=== PATIENT | female | born 1950 | race Caucasian/White ===

== ENCOUNTER 2020-05-23 23:54 | Emergency (ER) | payer MEDICARE, BC ==
[~2020-05-23] VITALS: Ht 167.6 cm; Wt 77.1 kg
[2020-05-24] MEDS ORDERED: DEXTROSE 50% SYRINGE 50 ML IV PRN (00:15)
[2020-05-24] MEDS ORDERED: ACETAMINOPHEN 325 MG TAB ONE (00:45)
[2020-05-24 00:52] LABS: ALBUMIN 3.7 g/dL (3.5-5.0); ALBUMIN/GLOBULIN RATIO 0.9 (0.8-2.0); ANION GAP 19.1 mmol/L (8-16); CALCIUM 8.1 mg/dL (8.4-10.2); CREATININE, SERUM 1.91 mg/dL (0.57-1.11); POTASSIUM 3.1 mmol/L (3.5-5.1)
[2020-05-24] MEDS ORDERED: ONDANSETRON HCL INJ 2MG/ML 2ML 2 MG/ML VIAL ONE (00:56)
[2020-05-24 01:09] LABS: CLARITY,URINE CLOUDY (CLEAR); COLOR,URINE YELLOW (YELLOW); KETONES,URINE NEGATIVE (NEGATIVE); LEUKOCYTE ESTERASE ,URINE NEGATIVE (NEGATIVE); NITRITE,URINE NEGATIVE (NEGATIVE); PROTEIN,URINE DIPSTICK >=300 (NEGATIVE); URINE UROBILINOGEN 0.2 mg/dL (0.2 - 1)
[2020-05-24 01:42] LABS: BACTERIA,URINE MANY /HPF; EPITHELIAL CELLS,URINE FEW /LPF; RBC,URINE >50 /HPF (0-5); WBC,URINE (MAN) 21-50 /HPF (0-5)
[2020-05-24] MEDS ORDERED: CEFTRIAXONE SOD 1 GM/50 ML BAG IV ONE (01:45)
[2020-05-24 01:47] LABS: BASOPHILS % 0.2 % (0.0-1.0); EOSINOPHILS % 0.2 % (0.0-6.0); HEMOGLOBIN 12.8 g/dL (12.0-16.0); LYMPHOCYTES # (AUTO) 0.5 (1.0-3.2); LYMPHOCYTES % 11.2 % (18.0-39.1); MEAN CORPUSCULAR HEMOGLOBIN 31.8 pg (28-32); MEAN CORPUSCULAR HGB CONC 34.6 g/dL (31-35); MEAN CORPUSCULAR VOLUME 91.8 fL (81-99); MONOCYTES # (AUTO) 0.2 (0.2-0.8); MONOCYTES % 4.3 % (4.4-11.3); NEUTROPHILS % 83.5 % (38.7-80.0); PLATELET COUNT 120 x10e3/uL (140-360); RED BLOOD COUNT 4.03 x10e6/uL (3.6-5.1)
[2020-05-24] MEDS ORDERED: CEFTRIAXONE SOD 1 GM in SODIUM CHLORIDE 0.9% 50ML 50 ML IV ONE (02:00)
[2020-05-24] MEDS ORDERED: ACETAMINOPHEN 325 MG TAB PO ONE (02:00)
[2020-05-24] MEDS ORDERED: LACTATED RINGER'S 1,000 ML INJ ONE ×2 (02:00→03:15)
== END 2020-05-24 06:13 | disposition other institution (70) ==
LOC: ER 05-24 → ERHOLD 05-24 03:22 → UNDOADMIN 05-24 03:22 → ER 05-24 06:13
DX: U07.1 COVID-19 (principal); N39.0 Urinary tract infection, site not specified; E11.65 Type 2 diabetes mellitus with hyperglycemia; R53.1 Weakness; I10 Essential (primary) hypertension
CPT/HCPCS: 36415; 71045; 80053; 81001; 82948; 83605; 84484; 85025; 87040; 87086; 93005; 99284; J0696; J2405; J7121; J7799; U0002

== ENCOUNTER 2020-05-27 17:48 | Emergency (ER) | payer MEDICARE, BC ==
[~2020-05-27] VITALS: Ht 167.6 cm; Wt 76.2 kg
[2020-05-27] MEDS ORDERED: CEFTRIAXONE SOD 1 GM/50 ML BAG IV ONE (18:00)
[2020-05-27] MEDS ORDERED: CEFTRIAXONE SOD 1 GM in SODIUM CHLORIDE 0.9% 50ML 50 ML IV ONE (18:15)
[2020-05-27 18:48] LABS: BASOPHILS % 0.1 % (0.0-1.0); HEMATOCRIT 36.2 % (34.2-44.1); HEMOGLOBIN 12.2 g/dL (12.0-16.0); LYMPHOCYTES # (AUTO) 0.6 (1.0-3.2); LYMPHOCYTES % 8.2 % (18.0-39.1); MEAN CORPUSCULAR HEMOGLOBIN 31.5 pg (28-32); MEAN CORPUSCULAR HGB CONC 33.7 g/dL (31-35); MEAN CORPUSCULAR VOLUME 93.5 fL (81-99); MONOCYTES # (AUTO) 0.2 (0.2-0.8); MONOCYTES % 2.7 % (4.4-11.3); NEUTROPHILS % 86.4 % (38.7-80.0); PLATELET COUNT 212 x10e3/uL (140-360); RED BLOOD COUNT 3.87 x10e6/uL (3.6-5.1); RED CELL DISTRIBUTION WIDTH 11.9 % (11.7-14.4)
[2020-05-27] MEDS ORDERED: TYLENOL # 31 EA PO (18:52)
[2020-05-27] MEDS ORDERED: VITAMIN D3 PO (18:52)
[2020-05-27] MEDS ORDERED: ACEBUTOLOL HCL200 MG PO (18:52)
[2020-05-27] MEDS ORDERED: AMLODIPINE BESYL5 MG PO (18:52)
[2020-05-27] MEDS ORDERED: BACLOFEN10 MG PO (18:52)
[2020-05-27] MEDS ORDERED: LOSARTAN POTAS100 MG PO (18:57)
[2020-05-27] MEDS ORDERED: FOLIC ACID PO (18:57)
[2020-05-27] MEDS ORDERED: PANTOPRAZOLE SO40 MG PO (18:57)
[2020-05-27] MEDS ORDERED: ASCORBIC ACID500 M2 PO (18:57)
[2020-05-27] MEDS ORDERED: HYDROCHLOROTHIA25 MG PO (18:57)
[2020-05-27] MEDS ORDERED: MELOXICAM7.5 MG PO (18:57)
[2020-05-27] MEDS ORDERED: AMBIEN10 MG PO (18:57)
[2020-05-27] MEDS ORDERED: CRESTOR10 MG PO (18:57)
[2020-05-27] MEDS ORDERED: METFORMIN HCL500 MG PO (18:57)
[2020-05-27] MEDS ORDERED: ULTRAM50 MG PO (18:57)
[2020-05-27 19:02] LABS: ALBUMIN 3.2 g/dL (3.5-5.0); ALBUMIN/GLOBULIN RATIO 0.7 (0.8-2.0); ANION GAP 17.1 mmol/L (8-16); CALCIUM 8.6 mg/dL (8.4-10.2); CREATININE, SERUM 1.31 mg/dL (0.57-1.11); POTASSIUM 4.1 mmol/L (3.5-5.1)
[2020-05-27 19:08] LABS: CREATINE KINASE MB 1.5 ng/mL (0-5.0)
[2020-05-27 19:36] LABS: LYMPHOCYTES % (MANUAL) 4 % (19-48); NEUTROPHILS % (MANUAL) 95 % (40-74); PLATELET MORPHOLOGY COMMENT FEW LARGE; RBC MORPHOLOGY COMMENT NORMAL
[2020-05-27 19:37] LABS: PLATELET ESTIMATE ADEQUATE
[2020-05-27] MEDS ORDERED: DEXAMETHASONE SOD PHOS 10 MG/1 ML VIAL IV ONE (20:30)
[2020-05-28 08:02] VITALS: BP 138/69
== END 2020-05-28 08:04 | disposition other institution (70) ==
LOC: ER 18:42
DX: U07.1 COVID-19 (principal); J18.9 Pneumonia, unspecified organism; R09.02 Hypoxemia; Z99.81 Dependence on supplemental oxygen
CPT/HCPCS: 36415; 71045; 80053; 82550; 82553; 83605; 84484; 85025; 87040; 93005; 99284; J0696; J1100; U0002